=== PATIENT | female | born 1985 | race Two or more races ===

== ENCOUNTER 2022-07-26 11:25 | Day surgery (SDC) | payer OTHER ==
[~2022-07-26 11:25] MED LIST: FOLIC ACID0.4 MG PO; ZOFRAN 2 MG4 MG/2 ML IV
== END 2022-07-26 16:55 | disposition home or self-care (01) ==
LOC: CIR.AMB 11:25
PROVIDERS: ATTEND Obstetrics & Gynecology
DX: O02.1 Missed abortion (principal); O72.2 Delayed and secondary postpartum hemorrhage; Z20.822 Contact with and (suspected) exposure to COVID-19; F41.9 Anxiety disorder, unspecified